=== PATIENT | female | born 1990 ===

== ENCOUNTER 2018-09-23 17:33 | Emergency (ER) | payer SELFPAY ==
[2018-09-23] MEDS ORDERED: Ibuprofen 200 MG TAB ONE (18:02)
--- NOTE | 2018-09-23 20:30 | RAD ---
THREE VIEWS LEFT WRIST: Indication: Fall with left wrist pain. FINDINGS/IMPRESSION: No acute fracture or subluxation is demonstrated. POS: [facility]
--- NOTE | 2018-09-23 20:30 | RAD ---
THREE VIEWS LEFT HAND: Indication: Fall with left hand pain. IMPRESSION: No acute fracture or subluxation is evident. POS: [facility]
--- NOTE | 2018-09-23 20:31 | RAD ---
FOUR VIEW LEFT ELBOW: Indication: Fall with left elbow pain. IMPRESSION: No acute fracture or subluxation is evident. Radiocapitellar alignment is within normal limits. No jihan int capsular distention is evident. POS: [facility]
== END 2018-09-23 19:03 | disposition home or self-care (01) ==
LOC: ERS 17:33
DX: S60.212A Contusion of left wrist, initial encounter (principal); M25.522 Pain in left elbow; F17.200 Nicotine dependence, unspecified, uncomplicated; W17.89XA Other fall from one level to another, initial encounter